=== PATIENT | female | born 1950 | race African-American/Black ===

== ENCOUNTER 2020-08-16 10:03 | Emergency (ER) | payer MEDICARE, OTHER ==
[2020-08-16 11:05] LABS: #Eosinphils 0.2 10x3/uL (0.0-0.5); #Monocytes 0.4 10x3/uL (0.0-1.1); #Neutrophils 3.7 10x3/uL (1.5-8.4); %Basophils 0.7 % (0.0-2.0); %Eosinophils 4.2 % (0.0-6.0); %Lymphocytes 22.3 % (18.0-47.0); %Neutrophils 65.3 % (40.0-75.0); Hemoglobin 11.3 g/dL (12.0-15.5); Mean Corpuscular HGB CONC 31.9 g/dL (32.0-36.0); Mean Corpuscular Volume 87.6 fl (81.6-98.3); Mean Platelet Volume 9.1 fl (7.4-10.4); Platelet Count 282 10x3/uL (150-450); Red Blood Cell (RBC) Count 4.04 10x6/uL (3.90-5.03); White Blood Cell (WBC) Count 5.7 10x3/uL (3.5-10.5)
[2020-08-16 11:19] LABS: Anion Gap 15 mmol/L (10-20); BUN (Urea Nitrogen) 22 mg/dL (9.8-20.1); Calc. Creatinine Clearance 0 mL/min (70-130); Calcium 9.7 mg/dL (7.8-10.44); Carbon Dioxide 28 mmol/L (23-31); Chloride 101 mmol/L (98-107); Glucose 189 mg/dL (80-115); Potassium 3.6 mmol/L (3.5-5.1); Sodium 140 mmol/L (136-145)
== END 2020-08-16 11:44 | disposition left against medical advice (07) ==
LOC: CSHERS 10:03
DX: Z53.21 Procedure and treatment not carried out due to patient leaving prior to being seen by health care provider (principal)
CPT/HCPCS: 80048; 85025

== ENCOUNTER 2021-04-04 13:38 | Outpatient (CLI) | payer MEDICARE, OTHER ==
[2021-04-04 14:57] LABS: Hemoglobin 11.6 g/dL (12.0-15.5); Mean Corpuscular Hemoglobin 27.4 pg (27.0-33.0); Mean Corpuscular Volume 85.6 fl (81.6-98.3); Mean Platelet Volume 10.3 fl (7.4-10.4); Platelet Count 282 10x3/uL (150-450); RBC Distribution Width 14.7 % (11.5-14.5); Red Blood Cell (RBC) Count 4.23 10x6/uL (3.90-5.03); White Blood Cell (WBC) Count 4.4 10x3/uL (3.5-10.5)
[2021-04-04 15:09] LABS: Anion Gap 15 mmol/L (10-20); BUN (Urea Nitrogen) 31 mg/dL (9.8-20.1); Calc. Creatinine Clearance 0 mL/min (70-130); Calcium 9.6 mg/dL (7.8-10.44); Carbon Dioxide 25 mmol/L (23-31); Chloride 105 mmol/L (98-107); Glucose 99 mg/dL (80-115); Potassium 3.8 mmol/L (3.5-5.1); Sodium 141 mmol/L (136-145)
[2021-04-05 11:54] LABS: SARS-CoV-2 PCR by NAA Not Detected (NotDetected)
== END 2021-04-04 13:39 | disposition home or self-care (01) ==
LOC: CSHLAB 13:38
PROVIDERS: ATTEND Otolaryngology Otolaryngic Allergy
DX: Z01.818 Encounter for other preprocedural examination (principal); Z20.822 Contact with and (suspected) exposure to COVID-19; R49.0 Dysphonia
CPT/HCPCS: 80048; 85027; 93005; 93010; U0003; U0005

== ENCOUNTER 2021-04-08 13:49 | Emergency (ER) | payer MEDICARE, OTHER ==
[2021-04-08] MEDS ORDERED: Morphine 4 MG/ML VIAL ONE (17:34)
[2021-04-08] MEDS ORDERED: Ondansetron PF 4 MG/2 ML Vial ONE (17:34)
== END 2021-04-08 16:00 | disposition home or self-care (01) ==
LOC: CSHERS 13:49
DX: S09.90XA Unspecified injury of head, initial encounter (principal); W20.8XXA Other cause of strike by thrown, projected or falling object, initial encounter; K21.9 Gastro-esophageal reflux disease without esophagitis; E78.5 Hyperlipidemia, unspecified; I10 Essential (primary) hypertension; Z79.899 Other long term (current) drug therapy; F17.210 Nicotine dependence, cigarettes, uncomplicated
CPT/HCPCS: 70450; 72125; J2270; J2405

== ENCOUNTER 2021-04-09 07:43 | Day surgery (SDC) | payer MEDICARE, OTHER ==
[2021-04-05 15:36] VITALS: BMI 26.2
[2021-04-09] MEDS ORDERED: Lidocaine 1% MPF 2 ML VIAL ONE (07:49)
[2021-04-09] MEDS ORDERED: EPINEPHrine 1 MG/ML AMP ONE (09:54)
[2021-04-09] MEDS ORDERED: SUGAMMADEX SODIUM 200 MG/2 ML VIAL ONE (09:55)
[2021-04-09] MEDS ORDERED: PROPOFOL 40 ML ONE (09:59)
[2021-04-09] MEDS ORDERED: Fentanyl 100 MCG/2 ML VIAL ONE (09:59)
[2021-04-09] MEDS ORDERED: PROPOFOL 20 ML ONE ×2 (09:59→10:33)
[2021-04-09] MEDS ORDERED: Lidocaine 2% PF 5 ML VIAL ONE (10:02)
[2021-04-09] MEDS ORDERED: Rocuronium Bromide 10 MG/ML (10ML VIAL) ONE (10:02)
[2021-04-09] MEDS ORDERED: Dexamethasone 20 MG/5 ML VIAL ONE (10:05)
[2021-04-09] MEDS ORDERED: Ondansetron PF 4 MG/2 ML Vial ONE (10:05)
== END 2021-04-09 11:50 | disposition home or self-care (01) ==
LOC: CSHSDC 07:43
PROVIDERS: ATTEND Otolaryngology Otolaryngic Allergy
PROC: 0CBT8ZX Excision of Right Vocal Cord, Via Natural or Artificial Opening Endoscopic, Diagnostic (ICD-10-PCS; principal; 2021-04-09)
DX: J38.1 Polyp of vocal cord and larynx (principal); R49.0 Dysphonia; Z79.899 Other long term (current) drug therapy; Z79.82 Long term (current) use of aspirin; F17.210 Nicotine dependence, cigarettes, uncomplicated
CPT/HCPCS: 88305; 88341; 88342; J0171; J1100; J2001; J2405; J2704; J3010

== ENCOUNTER 2022-09-02 11:52 | Outpatient (CLI) | payer OTHER, MEDICAID ==
[2022-09-02 13:03] LABS: Hemoglobin 11.6 g/dL (12.0-15.5); Mean Corpuscular HGB CONC 31.5 g/dL (32.0-36.0); Mean Corpuscular Hemoglobin 26.6 pg (27.0-33.0); Mean Corpuscular Volume 84.4 fl (81.6-98.3); Mean Platelet Volume 9.4 fl (7.4-10.4); Platelet Count 294 10x3/uL (150-450); RBC Distribution Width 14.9 % (11.5-14.5); Red Blood Cell (RBC) Count 4.36 10x6/uL (3.90-5.03); White Blood Cell (WBC) Count 5.1 10x3/uL (3.5-10.5)
[2022-09-02 13:27] LABS: Anion Gap 18 mmol/L (10-20); BUN (Urea Nitrogen) 27 mg/dL (9.8-20.1); Calc. Creatinine Clearance 0 mL/min (70-130); Calcium 10.1 mg/dL (7.8-10.44); Carbon Dioxide 23 mmol/L (23-31); Chloride 104 mmol/L (98-107); Estimated GFR 31; Glucose 102 mg/dL (80-115); Potassium 3.8 mmol/L (3.5-5.1); Sodium 141 mmol/L (136-145)
== END 2022-09-02 11:53 | disposition home or self-care (01) ==
LOC: CSHLAB 11:52
PROVIDERS: ATTEND Podiatrist Foot & Ankle Surgery
DX: Z01.818 Encounter for other preprocedural examination (principal); T85.848A Pain due to other internal prosthetic devices, implants and grafts, initial encounter
CPT/HCPCS: 80048; 85027; 93005; 93010

== ENCOUNTER 2022-09-17 10:42 | Day surgery (SDC) | payer OTHER, MEDICAID ==
[2022-09-16 13:08] VITALS: BMI 26.6
[2022-09-17] MEDS ORDERED: Bupivacaine PF 0.5% 30 ML VIAL ONE (13:17)
[2022-09-17] MEDS ORDERED: Neomycin-Polymyxin 1 ML AMP ONE (13:17)
[2022-09-17] MEDS ORDERED: CEFAZOLIN 2 GM VIAL ONE (13:24)
[2022-09-17] MEDS ORDERED: Lidocaine 1% PF 5 ML VIAL ONE (13:26)
[2022-09-17] MEDS ORDERED: PROPOFOL 20 ML ONE (13:26)
[2022-09-17] MEDS ORDERED: Fentanyl 100 MCG/2 ML VIAL ONE (13:26)
[2022-09-17] MEDS ORDERED: Ondansetron PF 4 MG/2 ML Vial ONE (13:44)
[2022-09-17] MEDS ORDERED: Dexamethasone 4 mg/ml Vial ONE (13:44)
[2022-09-17] MEDS ORDERED: Glycopyrrolate 0.2 MG/ML 5 ML SYRINGE ONE ×2 (14:02)
[2022-09-17] MEDS ORDERED: ePHEDrine Sulfate 50 MG/10 ML VIAL ONE (14:04)
== END 2022-09-17 15:30 | disposition home or self-care (01) ==
LOC: CSHSDC 10:42
PROVIDERS: ATTEND Podiatrist Foot & Ankle Surgery
PROC: 0YP93YZ Removal of Other Device from Right Lower Extremity, Percutaneous Approach (ICD-10-PCS; principal; 2022-09-17)
DX: T84.428 Displacement of other internal orthopedic devices, implants and grafts (principal); Y83.1 Surgical operation with implant of artificial internal device as the cause of abnormal reaction of the patient, or of later complication, without mention of misadventure at the time of the procedure; I73.9 Peripheral vascular disease, unspecified; F17.210 Nicotine dependence, cigarettes, uncomplicated; Z79.899 Other long term (current) drug therapy
CPT/HCPCS: J1100; J2405; J2704; J3010; S0020

== ENCOUNTER 2023-12-09 08:59 | Emergency (ER) | payer MEDICARE, MEDICAID ==
[2023-12-09] MEDS ORDERED: traMADol HCl 50 MG TAB ONE (09:44)
== END 2023-12-09 10:35 | disposition home or self-care (01) ==
LOC: CSHERS 08:59
DX: S92.355A Nondisplaced fracture of fifth metatarsal bone, left foot, initial encounter for closed fracture (principal); K21.9 Gastro-esophageal reflux disease without esophagitis; E78.5 Hyperlipidemia, unspecified; I10 Essential (primary) hypertension; F17.210 Nicotine dependence, cigarettes, uncomplicated; Z55.6 Problems related to health literacy; Z79.899 Other long term (current) drug therapy; W18.40XA Slipping, tripping and stumbling without falling, unspecified, initial encounter

== ENCOUNTER 2024-05-25 21:51 | Emergency (ER) | payer MEDICARE, MEDICAID ==
[2024-05-25] MEDS ORDERED: HYDROcodone/Acetaminophen 5/325 mg Tablet ONE (23:06)
== END 2024-05-25 23:15 | disposition home or self-care (01) ==
LOC: CSHERS 21:51
DX: M79.672 Pain in left foot (principal); F17.210 Nicotine dependence, cigarettes, uncomplicated; E78.5 Hyperlipidemia, unspecified; K21.9 Gastro-esophageal reflux disease without esophagitis; Z79.899 Other long term (current) drug therapy
CPT/HCPCS: 99283